=== PATIENT | male | born 1965 | race Caucasian/White ===

== ENCOUNTER 2023-04-17 16:02 | Emergency (ER) | payer OTHER, SELFPAY ==
--- NOTE | 2023-04-17 16:19 | ECG_ITS ---
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 Measurements Intervals [place] Rate: 93 P: 43 DC: 134 QRS: 67 QRSD: 122 T: 77 QT: 381 QTc: 476 Interpretive Statements SINUS RHYTHM POSSIBLE RIGHT VENTRICULAR CONDUCTION DELAY [RSR (QR) IN V1/V2] ST DEVIATION AND MODERATE T-WAVE ABNORMALITY, CONSIDER ANTERIOR ISCHEMIA [-0.1+ mV T-WAVE IN V3/V4] INTERPRETATION BASED ON A DEFAULT AGE OF 40 YEARS No previous ECG available for comparison Electronically Signed On 04-18-2023 11:26:14 [employer] RETAIL SALES MANAGER by Nasir Gonzalez M.D. [id number] f
[2023-04-17 16:25] VITALS: BP 110/79; PULSE 103; RESP 18; TEMP 36.5; O2SAT 98; BMI 29.2
[2023-04-17 16:32] VITALS: BP 141/105; PULSE 99; RESP 17; O2SAT 97
--- NOTE | 2023-04-17 16:32 | ED_ITS ---
Documented by User: Sergo Coombs DO 04/18/23 06:08 HPI - Chest Pain 2 General: Chief Complaint: Chest Pain Stated Complaint: chest pain Time Seen by Provider: 04/17/23 16:25 Source: patient Mode of arrival: ambulatory History of Present Illness: 57-year-old male presents emergency room with complaint of epigastric pain upper abdominal pain radiating up into his chest. No shortness of breath no radiation of the pain to the back neck or arms. He has not noticed any thing that exacerbates or relieves it. He does admit he is a heavy drinker drinks at least a sixpack per day. He denies any hematemesis or coffee-ground emesis. He has been vomiting some. He is concerned he may have gallbladder problems. MD complaint: chest pain Onset (ago): hour(s) Timing of current episode: episodic Onset: during rest Pain location: epigastric Pain radiation: other (Chest) Severity: mild Quality: aching Relieving factors: nothing Exacerbating factors: nothing Associated symptoms: Reports no associated symptoms, abdominal pain, nausea and vomiting; Deny diaphoresis, dyspnea, fever(s), leg edema, palpitations, sense of impending doom or syncope Treatment prior to arrival: none Review of Systems 2 Const: Denies: fever(s), chills or diaphoresis Card: Denies: chest pain, palpitations or syncope Resp: Denies: dyspnea GI: Reports: abdominal pain, nausea and vomiting : Denies: dysuria, urinary frequency or urinary urgency Musc: Denies: neck pain or back pain Skin/Breast: Denies: rash Physical Exam 2 Const: COMMON NORMALS: no acute distress GENERAL APPEARANCE: cooperative and comfortable ORIENTATION/CONSCIOUSNESS: Yes awake, Yes oriented to person, Yes oriented to place and Yes oriented to time HENMT: COMMON NORMALS: normocephalic, atraumatic and hearing grossly normal bilaterally HEAD & SCALP: normocephalic and atraumatic Resp: COMMON NORMALS: normal respiratory effort, No retractions, No use of accessory muscles and clear to auscultation bilaterally AUSCULTATION: clear to auscultation bilaterally Cardio: COMMON NORMALS: regular rate, regular rhythm and No murmurs present (Cardio) RATE: regular rate RHYTHM: regular rhythm GI: COMMON NORMALS: Soft to palpation and No hepatosplenomegaly present A USCULTATION: Yes normoactive bowel sounds PALPATION: Yes Soft to palpation, No Tenderness to palpation present (GI), No Guarding due to palpation present (GI) and Yes No hepatosplenomegaly present Extremity: COMMON NORMALS: normal to inspection, capillary refill normal, no clubbing, cyanosis or edema, no calf tenderness and no pedal edema Neuro: SENSORIUM/ORIENTATION: Yes oriented to person, Yes oriented to place and Yes oriented to time Skin: COMMON NORMALS: no rashes or lesions noted GENERAL SKIN EXAM: no rashes or lesions noted Course 2 Vital Signs: Vital signs: Vital Signs Temperature 97.7 F 04/17/23 19:41 Pulse Rate 91 04/17/23 19:41 Respiratory Rate 16 04/17/23 19:41 Blood Pressure 133/96 04/17/23 19:41 Pulse Oximetry 96 04/17/23 19:41 Oxygen Delivery Me thod Room Air 04/17/23 18:15 MDM - Chest Pain Medical Decision Making Care signed out to Dr. Rose at change of shift. See final notes for diagnosis and disposition. Patient presents here with abdominal pain vomiting is likely an alcoholic gastritis he did drink heavily yesterday and is a heavy drinker. He feels much improved after GI cocktail he had some chest pains as well that since resolved his troponins here are normal does have some EKG changes with LVH no signs of acute STEMI I did offer him admission he states he feels improved would like to go home we will start him on Protonix and Zofran I informed he needs to follow- up with PCP and if he worsens he is to return he understands agrees to plan. Medical Records I reviewed the patient's medical records. Lab Data I reviewed the patient's lab results. 04/17/23 16:43 04/17/23 16:43 Radiology Impressions Chest X-Ray 04/17/23 16:33 IMPRESSION: No acute findings. Abdomen/Pelvis CT 04/17/23 16:37 IMPRESSION: No acute abdominal findings. Hepatic steatosis. Laboratory Results WBC 8.58 10^3/uL (3.29-11.43) 04/17/23 16:43 RBC 4.34 10^6/uL (3.85-5.65) 04/17/23 16:43 Hgb 14.90 g/dL (11.27-16.99) 04/17/23 16:43 Hct 42.4 % (37-53) 04/17/23 16:43 MCV 97.7 fl (82-101) 04/17/23 16:43 MCH 34.3 pg (27-33) H 04/17/23 16:43 MCHC 35.1 g/dL (30-55) 04/17/23 16:43 RDW 12.0 % (12.1-15.1) L 04/17/23 16:43 Plt Count 240 10^3/cmm (157-399) 04/17/23 16:43 MPV 9.9 fL (7.4-10.4) 04/17/23 16:43 Neut % (Auto) 65.5 % 04/17/23 16:43 Lymph % (Auto) 22.5 % 04/17/23 16:43 [place] % (Auto) 6.9 % 04/17/23 16:43 Eos % (Auto) 4.3 % 04/17/23 16:43 Baso % (Auto) 0.6 % 04/17/23 16:43 Neut # (Auto) 5.62 10^3/uL (1.8-7.7) 04/17/23 16:43 Lymph # (Auto) 1.9 10^3/uL (0.8-4.8) 04/17/23 16:43 [place] # (Auto) 0.6 10^3/uL (0.2-0.9) 04/17/23 16:43 Eos # (Auto) 0.4 10^3/uL (0.0-0.8) 04/17/23 16:43 Baso # (Auto) 0.1 10^3/uL (0.0-0.1) 04/17/23 16:43 Nucleated RBC % (auto) 0 % 04/17/23 16:43 Nucleated RBCs # 0.0 /100WBC 04/17/23 16:43 Sodium 143 mmol/L (136-145) 04/17/23 16:43 Potassium 3.8 mmol/L (3.5-5.1) 04/17/23 16:43 Chloride 105 mmol/L (98-107) 04/17/23 16:43 Carbon Dioxide 22 mmol/L (22-29) 04/17/23 16:43 Anion Gap 19.8 (5-19) H 04/17/23 16:43 BUN 13 mg/dL (6-20) 04/17/23 16:43 Creatinine 0.7 mg/dL (0.7-1.2) 04/17/23 16:43 GFR Calculation 117.1 mL/min (90-130) 04/17/23 16:43 Glucose 109 mg/dL (65-115) 04/17/23 16:43 Calculated Osmolality 297 mOsm/kg (285-295) H 04/17/23 16:43 Calcium 9.5 mg/dL (8.5-10.5) 04/17/23 16:43 Total Bilirubin 0.4 mg/dL (0.15-1.2) 04/17/23 16:43 AST 28 U/L (0-40) 04/17/23 16:43 ALT 44 U/L (0-41) H 04/17/23 16:43 Alkaline Phosphatase 125 U/L (40-130) 04/17/23 16:43 Troponin T Baseline 10 ng/L (0-15) 04/17/23 16:43 Troponin T 120 Minute 9.22 ng/L (0-15) 04/17/23 18:47 Delta Troponin T -0.78 ABS# (0-10) L 04/17/23 18:47 Total Protein 7.2 g/dL (6.6-8.7) 04/17/23 16:43 Albumin 4.7 g/dL (3.5-5.2) 04/17/23 16:43 Globulin 2.5 g/dL (1.3-4.6) 04/17/23 16:43 Lipase 30 U/L (13-60) 04/17/23 16:43 Discharge Plan Discharge Patient Disposition: Home Clinical Impression: Vomiting Chest pain Qualifiers: Chest pain type: unspecified Qualified Code(s): R07.9 - Chest pain, unspecified Abdominal pain Qualifiers: Abdominal location: unspecified location Qualified Code(s): R10.9 - Unspecified abdominal pain Condition: Stable Prescriptions: New Protonix 40 mg tablet,delayed release (DR/EC) 40 mg PO DAILY Qty: 60 0RF ondansetron 4 mg tablet,disintegrating 4 mg PO Q6H PRN (Reason: nausea and vomiting) Qty: 14 0RF Discharge Orders: Discharge ED (Routine); Ordered 04/17/23 Ordered By: Maris Rose Referrals: Kaiden Kim DO [Primary Care Provider] - 1-3 days Discharge Diet: Advance as tolerated Discharge Activity: Resume usual activity Patient Instructions: Chest Pain (ED), Gastritis (ED), Acute Nausea and Vomiting (ED), Abdominal Pain (ED) Coding Level of Care Code ED Front Counter Clerk for Chg Fwd Documented by User: Maris Rose MD 04/17/23 19:44 HPI - Chest Pain 2 General: Chief Complaint: Chest Pain Stated Complaint: chest pain Time Seen by Provider: 04/17/23 16:25 History of Present Illness: 57-year-old male states that he had amberly coreas an heavy yesterday watch and she is came along with pain years he states he is a daily drinker states today's had vomiting along with abdominal pain that radiates into his chest. He denies any shortness of breath denies any fevers denies any worsening proving factors. Course 2 Vital Signs: Vital signs: Vital Signs Temperature 97.7 F 04/17/23 19:41 Pulse Rate 91 04/17/23 19:41 Respiratory Rate 16 04/17/23 19:41 Blood Pressure 133/96 04/17/23 19:41 Pulse Oximetry 96 04/17/23 19:41 Oxygen Delivery Me thod Room Air 04/17/23 18:15 MDM - Chest Pain Medical Decision Making Patient presents here with abdominal pain vomiting is likely an alcoholic gastritis he did drink heavily yesterday and is a heavy drinker. He feels much improved after GI cocktail he had some chest pains as well that since resolved his troponins here are normal does have some EKG changes with LVH no signs of acute STEMI I did offer him admission he states he feels improved would like to go home we will start him on Protonix and Zofran I informed he needs to follow- up with PCP and if he worsens he is to return he understands agrees to plan. Lab Data 04/17/23 16:43 04/17/23 16:43 Radiology Impressions Chest X-Ray 04/17/23 16:33 IMPRESSION: No acute findings. Abdomen/Pelvis CT 04/17/23 16:37 IMPRESSION: No acute abdominal findings. Hepatic steatosis. Laboratory Results WBC 8.58 10^3/uL (3.29-11.43) 04/17/23 16:43 RBC 4.34 10^6/uL (3.85-5.65) 04/17/23 16:43 Hgb 14.90 g/dL (11.27-16.99) 04/17/23 16:43 Hct 42.4 % (37-53) 04/17/23 16:43 MCV 97.7 fl (82-101) 04/17/23 16:43 MCH 34.3 pg (27-33) H 04/17/23 16:43 MCHC 35.1 g/dL (30-55) 04/17/23 16:43 RDW 12.0 % (12.1-15.1) L 04/17/23 16:43 Plt Count 240 10^3/cmm (157-399) 04/17/23 16:43 MPV 9.9 fL (7.4-10.4) 04/17/23 16:43 Neut % (Auto) 65.5 % 04/17/23 16:43 Lymph % (Auto) 22.5 % 04/17/23 16:43 [place] % (Auto) 6.9 % 04/17/23 16:43 Eos % (Auto) 4.3 % 04/17/23 16:43 Baso % (Auto) 0.6 % 04/17/23 16:43 Neut # (Auto) 5.62 10^3/uL (1.8-7.7) 04/17/23 16:43 Lymph # (Auto) 1.9 10^3/uL (0.8-4.8) 04/17/23 16:43 [place] # (Auto) 0.6 10^3/uL (0.2-0.9) 04/17/23 16:43 Eos # (Auto) 0.4 10^3/uL (0.0-0.8) 04/17/23 16:43 Baso # (Auto) 0.1 10^3/uL (0.0-0.1) 04/17/23 16:43 Nucleated RBC % (auto) 0 % 04/17/23 16:43 Nucleated RBCs # 0.0 /100WBC 04/17/23 16:43 Sodium 143 mmol/L (136-145) 04/17/23 16:43 Potassium 3.8 mmol/L (3.5-5.1) 04/17/23 16:43 Chloride 105 mmol/L (98-107) 04/17/23 16:43 Carbon Dioxide 22 mmol/L (22-29) 04/17/23 16:43 Anion Gap 19.8 (5-19) H 04/17/23 16:43 BUN 13 mg/dL (6-20) 04/17/23 16:43 Creatinine 0.7 mg/dL (0.7-1.2) 04/17/23 16:43 GFR Calculation 117.1 mL/min (90-130) 04/17/23 16:43 Glucose 109 mg/dL (65-115) 04/17/23 16:43 Calculated Osmolality 297 mOsm/kg (285-295) H 04/17/23 16:43 Calcium 9.5 mg/dL (8.5-10.5) 04/17/23 16:43 Total Bilirubin 0.4 mg/dL (0.15-1.2) 04/17/23 16:43 AST 28 U/L (0-40) 04/17/23 16:43 ALT 44 U/L (0-41) H 04/17/23 16:43 Alkaline Phosphatase 125 U/L (40-130) 04/17/23 16:43 Troponin T Baseline 10 ng/L (0-15) 04/17/23 16:43 Troponin T 120 Minute 9.22 ng/L (0-15) 04/17/23 18:47 Delta Troponin T -0.78 ABS# (0-10) L 04/17/23 18:47 Total Protein 7.2 g/dL (6.6-8.7) 04/17/23 16:43 Albumin 4.7 g/dL (3.5-5.2) 04/17/23 16:43 Globulin 2.5 g/dL (1.3-4.6) 04/17/23 16:43 Lipase 30 U/L (13-60) 04/17/23 16:43 All radiology interpretation(s) finalized by discharge Discharge Plan Discharge Patient Disposition: Home Clinical Impression: Vomiting Chest pain Qualifiers: Chest pain type: unspecified Qualified Code(s): R07.9 - Chest pain, unspecified Abdominal pain Qualifiers: Abdominal location: unspecified location Qualified Code(s): R10.9 - Unspecified abdominal pain Condition: Stable Prescriptions: New Protonix 40 mg tablet,delayed release (DR/EC) 40 mg PO DAILY Qty: 60 0RF ondansetron 4 mg tablet,disintegrating 4 mg PO Q6H PRN (Reason: nausea and vomiting) Qty: 14 0RF Discharge Orders: Discharge ED (Routine); Ordered 04/17/23 Ordered By: Maris Rose Referrals: Kaiden Kim, [Primary Care Provider] - 1-3 days Discharge Diet: Advance as tolerated Discharge Activity: Resume usual activity Patient Instructions: Chest Pain (ED), Gastritis (ED), Acute Nausea and Vomiting (ED), Abdominal Pain (ED) Coding Level of Care Code ED Front Counter Clerk for Osmar Otto
--- NOTE | 2023-04-17 16:33 | XRR_ITS ---
PROCEDURE INFORMATION: Exam: XR Chest Exam date and time: 04/17/2023 4:39 PM Age: 57 years old Clinical indication: Cough and dyspnea; Additional info: Dyspnea/cough TECHNIQUE: Imaging protocol: Radiologic exam of the chest. Views: 1 view. COMPARISON: CR XR ribs RT 2V* [id number] 11/26/2018 8:40 AM FINDINGS: Lungs: Unremarkable. No consolidation. Pleural spaces: Unremarkable. No pleural effusion. No pneumothorax. Heart/Mediastinum: Unremarkable. No cardiomegaly. Bones/joints: Unremarkable. XR/XR chest 1V portable [id number] IMPRESSION: No acute findings.
--- NOTE | 2023-04-17 16:37 | CTR_ITS ---
PROCEDURE INFORMATION: Exam: CT Abdomen And Pelvis Without Contrast Exam date and time: 04/17/2023 5:33 PM Age: 57 years old Clinical indication: Abdominal pain; Generalized TECHNIQUE: Imaging protocol: Computed tomography of the abdomen and pelvis without contrast. Radiation optimization: All CT scans at this facility use at least one of these dose optimization techniques: automated exposure control; mA and/or kV adjustment per patient size (includes targeted exams where dose is matched to clinical indication); or iterative reconstruction. REPORTING DATA: Count of CT and Cardiac NM exams in prior 12 months: This patient has received 0 known CTs and 0 known cardiac nuclear medicine studies in the 12 months prior to the current study. COMPARISON: CR (CHEST, ) 04/17/2023 4:39 PM RADIATION DOSE METRICS: Total DLP (mGy-cm): 502 FINDINGS: Liver: Hepatic steatosis. Gallbladder and bile ducts: No calcified stones. No ductal dilation. Pancreas: No ductal dilation. Spleen: No splenomegaly. Adrenal glands: No mass. Kidneys and ureters: No stones or hydronephrosis. Stomach and bowel: No obstruction. Appendix: Normal appendix. Intraperitoneal space: No free air. No significant fluid collection. Vasculature: No abdominal aortic aneurysm. Lymph nodes: No enlarged lymph nodes. Urinary bladder: No acute findings. Reproductive: Unremarkable as visualized. Bones/joints: No acute findings. Soft tissues: Unremarkable. CT/CT abdomen pelvis con [id number] IMPRESSION: No acute abdominal findings. Hepatic steatosis.
[2023-04-17 16:46] LABS: Basophils # 0.1 10^3/uL (0.0-0.1); Basophils % 0.6 %; Eosinophils # 0.4 10^3/uL (0.0-0.8); Eosinophils % 4.3 %; Hematocrit 42.4 % (37-53); Lymphocytes # 1.9 10^3/uL (0.8-4.8); Lymphocytes % 22.5 %; Mean Corpuscular HGB Conc 35.1 g/dL (30-55); Mean Corpuscular Hemoglobin 34.3 pg (27-33); Mean Corpuscular Volume 97.7 fl (82-101); Mean Platelet Volume 9.9 fL (7.4-10.4); Monocytes # 0.6 10^3/uL (0.2-0.9); Monocytes % 6.9 %; Neutrophils # 5.62 10^3/uL (1.8-7.7); Neutrophils % 65.5 %; Nucleated Red Blood Cells % 0 %; Platelet Count 240 10^3/cmm (157-399); Red Blood Count 4.34 10^6/uL (3.85-5.65); White Blood Count 8.58 10^3/uL (3.29-11.43)
[2023-04-17] MEDS: aspirin 81 mg Chew Tablet 324 MG PO (16:49)
[2023-04-17 17:08] LABS: Troponin(5th) Baseline 10 ng/L (0-15)
[2023-04-17 17:09] LABS: Alanine Aminotransferase 44 U/L (0-41); Albumin Level 4.7 g/dL (3.5-5.2); Alkaline Phosphatase 125 U/L (40-130); Anion Gap 19.8 (5-19); Aspartate Amino Transferase 28 U/L (0-40); Blood Urea Nitrogen 13 mg/dL (6-20); Calcium 9.5 mg/dL (8.5-10.5); Carbon Dioxide 22 mmol/L (22-29); Chloride 105 mmol/L (98-107); Globulin 2.5 g/dL (1.3-4.6); Glomerular Filtration Rate 117.1 mL/min (90-130); Glucose 109 mg/dL (65-115); Lipase 30 U/L (13-60); Osmolality Calculated 297 mOsm/kg (285-295); Potassium 3.8 mmol/L (3.5-5.1); Sodium 143 mmol/L (136-145); Total Bilirubin 0.4 mg/dL (0.15-1.2); Total Protein 7.2 g/dL (6.6-8.7)
[2023-04-17] MEDS: lidocaine 2% viscous 15 ML, aluminum-mag hydrox-simethicon 30 ML, sucralfate oral liq 1 GM PO (17:52)
[2023-04-17 17:55] VITALS: BP 137/97; PULSE 104; RESP 18; O2SAT 96
[2023-04-17 18:15] VITALS: BP 137/97; PULSE 104; RESP 17; O2SAT 95
--- NOTE | 2023-04-17 18:34 | ECG_ITS ---
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 [id number]
[2023-04-17] MEDS: ondansetron 2 mg/ML SDV 2 mL 4 MG IVP (19:01)
[2023-04-17] MEDS: nitroglycerin 0.4 mg sublingual Tablet SUBLINGUAL (19:02)
[2023-04-17] MEDS: sodium chloride 0.9% 1,000 ML 999 ML IV (19:03)
[2023-04-17 19:13] LABS: Troponin 5 2HR 9.22 ng/L (0-15)
[2023-04-17 19:18] LABS: Troponin 5 2HR Delta -0.78 ABS# (0-10)
[2023-04-17 19:31] VITALS: BP 133/96; PULSE 91; RESP 16; O2SAT 96
[2023-04-17 19:41] VITALS: BP 133/96; PULSE 91; RESP 16; TEMP 36.5; O2SAT 96
== END 2023-04-17 19:42 | disposition home or self-care (01) ==
PROVIDERS: Family Medicine; Emergency Provider Emergency Medicine; Family Provider Electrodiagnostic Medicine; PCP Electrodiagnostic Medicine
DX: R07.9 Chest pain, unspecified (principal); R10.9 Unspecified abdominal pain; R11.11 Vomiting without nausea
CPT/HCPCS: 36415; 71045; 74176; 80053; 83690; 84484; 85025; 93005; 96361; 96374; 99285; J2405; J7030